=== PATIENT | female | born 1955 | race American Indian/Alaskan Native ===

== ENCOUNTER 2019-01-27 07:10 | Day surgery (SDC) | payer MEDICARE, BC ==
[~2019-01-27 07:10] MED LIST: Buffered Lidocaine 1% SYRIN* 1 ML/SYRINGE INTRADERM ONE; Famotidine IV* 10 MG/ML 2 ML (20 mg) IV ONE; Lactated Ringers 1000 ML Bag* 1,000 ML IV SCH; Metoclopramide TAB* 10 MG PO ONE
[2019-01-27] MEDS ORDERED: Famotidine IV* 10 MG/ML 2 ML (20 mg) ONE (08:16)
[2019-01-27] MEDS ORDERED: Metoclopramide IV* 5 MG/ML 2 ML VIAL ONE (08:16)
[2019-01-27] MEDS ORDERED: Buffered Lidocaine 1% SYRIN* 1 ML/SYRINGE INTRADERM ONE (08:16)
[2019-01-27] MEDS ORDERED: fentaNYL* 50 MCG/ML 2 ML VIAL (100 MCG VIAL) IV PRN (09:10)
[2019-01-27] MEDS ORDERED: DiMENhydriNATE IV* 50 MG/ML VIAL IV PUSH PRN (09:10)
[2019-01-27] MEDS ORDERED: HYDROcodone/ACETAMIN 5-325 MG* 1 TAB PO PRN (09:10)
[2019-01-27] MEDS ORDERED: Ketorolac INJ* 30 MG/ML 1 ML VIAL IV PRN (09:10)
[2019-01-27] MEDS ORDERED: Naloxone* 0.4 MG/ML 1 ML VIAL IV PRN (09:10)
[2019-01-27] MEDS ORDERED: oxyCODONE/Acetamin 5/325 MG* TAB PO PRN (09:10)
[2019-01-27] MEDS ORDERED: fentaNYL* 50 MCG/ML 2 ML VIAL (100 MCG VIAL) ONE (09:40)
[2019-01-27] MEDS ORDERED: Midazolam* 1 MG/ML 5 ML VIAL (5 MG) ONE (09:40)
[2019-01-27] MEDS ORDERED: Lidocaine 2% PF * 5 ML VIAL ONE (09:41)
[2019-01-27] MEDS ORDERED: Propofol* 10 MG/ML 20 ML BTL ONE (09:41)
[2019-01-27] MEDS ORDERED: Heparin VIAL(*) 5000 UNITS/ML VIAL (FIVE THOUSAND) ONE (10:40)
[2019-01-27] MEDS ORDERED: EPHEDrine (Pressors)* 50 MG/ML VIAL ONE (11:25)
[2019-01-27] MEDS ORDERED: Ondansetron INJ* 2 MG/ML VIAL ONE (11:33)
[2019-01-27] MEDS ORDERED: Phenylephrine 40 MCG/ML SYRINGE ONE (11:36)
--- NOTE | 2019-01-27 12:40 | OP ---
CC: [facility] OPERATIVE REPORT: DATE OF OPERATION: 01/27/19 DATE OF : 53 SURGEON: Margarita Kessler MD. ANESTHESIOLOGIST: Dr. Dumas. PRE-OP DIAGNOSIS: Postmenopausal bleeding. POST-OP DIAGNOSIS: Postmenopausal bleeding. OPERATIVE PROCEDURE: Dilation, hysteroscopy, MyoSure polypectomy, curettage. ESTIMATED BLOOD LOSS: Less than 20 cc. SPECIMENS: Endometrial polyp and endometrial curettings. FLUIDS: Per Anesthesia. Fluid deficit was 250 cc on the MyoSure device. FINDINGS: Midline cervix. Uterus sounds to 8. There is a large polyp extending from the fundus to the level of the internal os. Both tubal ostia were visualized. There were 2 other areas of slightly polypoid appearing tissue on the posterior uterine wall. The perineum appears chronically wet, there were no skin ulcerations on the perineum. COMPLICATIONS: None. COUNTS: Sponge count correct x2. CONDITION: The patient tolerated the procedure well and was brought to the recovery room awake and in stable condition. DESCRIPTION OF PROCEDURE: The patient was brought to the operating room. When anesthesia was found to be adequate, the patient was prepped and draped in the usual sterile fashion in the dorsal lithotomy position. Time-out was performed. Exam under anesthesia was performed. The side opening speculum was placed. The anterior lip of the cervix was grasped with a single-tooth tenaculum and the cervix was gently and easily dilated with graduated Hegar dilators. The hysteroscope was introduced. A large polyp was seen. The MyoSure polypectomy was performed. The polyp was removed in its entirety. Curettage was then performed. Endometrial polyp and endometrial curettings were sent to Pathology. The single-tooth tenaculum was removed from the cervix. Excellent hemostasis was noted. All instruments were removed from the vagina and the patient was brought to the recovery room awake and in stable condition. [id number]/[facility] #: [id number] [facility]ENTERKei
[2019-01-27 13:21] VITALS: BP 126/78
== END 2019-01-27 13:23 | disposition home or self-care (01) ==
LOC: OR 07:10
PROVIDERS: ATTEND Obstetrics & Gynecology
DX: N95.0 Postmenopausal bleeding (principal); N84.0 Polyp of corpus uteri; E11.9 Type 2 diabetes mellitus without complications; Z79.84 Long term (current) use of oral hypoglycemic drugs; Z87.891 Personal history of nicotine dependence; Z68.43 Body mass index [BMI] 50.0-59.9, adult; I10 Essential (primary) hypertension; Z99.81 Dependence on supplemental oxygen; G47.33 Obstructive sleep apnea (adult) (pediatric); M54.2 Cervicalgia; Z79.891 Long term (current) use of opiate analgesic
CPT/HCPCS: 88305; J1644; J2250; J2405; J2704; J2765; J3010

== ENCOUNTER 2023-10-13 02:54 | Inpatient (IN) ==
[2023-10-13] MEDS: Acetaminophen IV 1 GM/100ML 1,000 MG/100 ML BAG IV ONE (06:44)
[2023-10-13] MEDS: Morphine 4 MG/ML VIAL (1 ml) IV ONE ×2 (07:54→11:51)
[2023-10-13 09:56] LABS: ABS Basophils 0.1 10^3/uL (0.0-0.1); ABS Eosinophils 0.3 10^3/uL (0.0-0.5); ABS Lymphocytes 2.1 10^3/uL (1.0-4.8); ABS Monocytes 0.9 10^3/uL (0.0-0.9); ABS Neutrophils 8.6 10^3/uL (1.5-7.6); ABS Nucleated RBC 0.01 10^3/ul; Eosinophil % 2.1 %; Hematocrit 39.2 % (35-45); Hemoglobin 12.8 g/dL (11.5-14.3); Lymphocyte % 17.9 %; Mean Corpuscular Hemoglobin 32.2 pg (27-33); Mean Corpuscular Hgb Conc 32.7 g/dL (31-36); Mean Corpuscular Volume 98.4 fL (80-97); Mean Platelet Volume 7.5 fL (7.5-11.2); Platelet Count 222 10^3/uL (150-450); Red Blood Count 3.98 10^6/uL (3.63-4.92); Red Cell Distribution Width 14.1 % (12-17); White Blood Count 11.9 10^3/uL (3.8-11.8)
[2023-10-13 10:40] LABS: Albumin 3.5 g/dL (3.2-5.2); Albumin/Globulin Ratio 1.5 (1-3); Calcium 9.1 mg/dL (8.6-10.3); Creatinine, Serum 0.86 mg/dL (0.51-0.95); Globulin 2.3 g/dL (2-4); Potassium 4.2 mmol/L (3.5-5.0); Total Bilirubin 0.4 mg/dL (0.2-1.0); Total Protein 5.8 g/dL (6.4-8.9); eGFR CKD-EPI 73.1 (>60)
[2023-10-13] MEDS ORDERED: Polyethylene Glycol 3350 17 GM PACKET PO PRN (12:25)
[2023-10-13] MEDS ORDERED: Senna TAB 8.6 mg TAB PO PRN (12:25)
[2023-10-13] MEDS ORDERED: Magnesium Hydroxide LIQ 30 ML UDC PO PRN (12:25)
[2023-10-13] MEDS ORDERED: ceFAZolin *3* GM in NS PREMIX 3 GM/100 ML BAG IV ONE (14:14)
[2023-10-13] MEDS ORDERED: Propofol 10 MG/ML 20 ML BTL ONE ×2 (15:08→23:04)
[2023-10-13] MEDS ORDERED: fentaNYL 100 mcg/2 ml 50 MCG/ML VIAL ONE ×3 (15:08→22:51)
[2023-10-13] MEDS ORDERED: Lidocaine 2% PF 5 ML VIAL ONE ×2 (15:08→17:51)
[2023-10-13] MEDS ORDERED: Midazolam 2 mg/2 ml VIAL 1 mg/ml 2 ml VIAL (2 mg) ONE (15:08)
[2023-10-13] MEDS ORDERED: Naloxone 0.4 mg VIAL 0.4 mg/ml 1 ml VIAL IV PRN (15:10)
[2023-10-13] MEDS ORDERED: fentaNYL 100 mcg/2 ml 50 MCG/ML VIAL IV PRN (15:10)
[2023-10-13] MEDS ORDERED: Ondansetron 4 mg VIAL 2 MG/ML 2 ml VIAL IV PRN (15:10)
[2023-10-13] MEDS ORDERED: Rocuronium 50 mg VIAL 10 mg/ml 5 ml VIAL (50 mg) ONE ×2 (15:47→18:40)
[2023-10-13] MEDS ORDERED: Morphine 10 MG/ML VIAL (1 ml) ONE (16:46)
[2023-10-13] MEDS: Morphine 10 MG/ML VIAL (1 ml) IV PRN (16:48)
[2023-10-13] MEDS: Dextrose 50% Syringe 50 ml 25 GM/50 ML SYRINGE IV PUSH PRN (17:38)
[2023-10-13] MEDS ORDERED: Acetaminophen IV 1 GM/100ML 1,000 MG/100 ML BAG IV ONE (19:22)
[2023-10-13] MEDS ORDERED: KETAMINE HCL 10 MG/ML 20 ml VIAL (200 MG) ONE (19:32)
[2023-10-13] MEDS ORDERED: ceFAZolin VIAL VIAL ONE (22:31)
[2023-10-13] MEDS ORDERED: Bupivacaine 0.5% SDV PF 30ML VIAL ONE (22:50)
[2023-10-14] MEDS: Albumin Human 5% 12.5 GM/250 ML BTL IV ONE (01:08)
[2023-10-14] MEDS: oxyCODONE SR 10 mg TAB PO SCH (01:08)
[2023-10-14] MEDS: Dextrose 25% PED SYRINGE 10ml IV ONE (01:09)
[2023-10-14] MEDS: Lactated Ringers 1000 ml BAG 1,000 ML IV SCH (01:18)
[2023-10-14] MEDS: Insulin GLARGINE 100 un/ml 10 ml VIAL SUBCUT SCH (02:42)
[2023-10-14 04:22] LABS: ABS Lymphocytes 1.5 10^3/uL (1.0-4.8); ABS Monocytes 0.7 10^3/uL (0.0-0.9); ABS Neutrophils 15.6 10^3/uL (1.5-7.6); ABS Nucleated RBC 0.01 10^3/ul; Hematocrit 33.1 % (35-45); Hemoglobin 10.8 g/dL (11.5-14.3); Lymphocyte % 8.3 %; Mean Corpuscular Hemoglobin 31.8 pg (27-33); Mean Corpuscular Hgb Conc 32.6 g/dL (31-36); Mean Corpuscular Volume 97.7 fL (80-97); Mean Platelet Volume 7.9 fL (7.5-11.2); Platelet Count 271 10^3/uL (150-450); Red Blood Count 3.39 10^6/uL (3.63-4.92); Red Cell Distribution Width 14.3 % (12-17); White Blood Count 17.8 10^3/uL (3.8-11.8)
[2023-10-14 04:45] LABS: Calcium 8.7 mg/dL (8.6-10.3); Creatinine, Serum 0.86 mg/dL (0.51-0.95); Potassium 4.5 mmol/L (3.5-5.0); eGFR CKD-EPI 73.1 (>60)
[2023-10-14] MEDS: Morphine 2 MG/ML SYRINGE IV PRN (05:05)
[2023-10-14] MEDS: Enoxaparin 40 MG/0.4 ML SYR SUBCUT SCH (08:31)
[2023-10-14] MEDS: CMC:DAPAGLIFLOZIN 10 MG TAB (NF) PO SCH (09:17)
[2023-10-14] MEDS: ceFAZolin 1 GM ADVAN 1 GM in NS 0.9% 50 ML 50 ML IVPB SCH (09:17)
[2023-10-14] MEDS: NON FORMULARY MED (Cyanocobalamin (Vitamin B-12) [Vitamin B-12] 5,000 mcg Tablet, Sublingu SL SCH (09:36)
[2023-10-14] MEDS: Senna TAB 8.6 mg TAB PO SCH (21:22)
[2023-10-15 06:29] LABS: ABS Eosinophils 0.1 10^3/uL (0.0-0.5); ABS Lymphocytes 2.4 10^3/uL (1.0-4.8); ABS Neutrophils 6.8 10^3/uL (1.5-7.6); ABS Nucleated RBC 0.01 10^3/ul; Eosinophil % 0.8 %; Hematocrit 24.6 % (35-45); Hemoglobin 8.2 g/dL (11.5-14.3); Lymphocyte % 23.5 %; Mean Corpuscular Hgb Conc 33.5 g/dL (31-36); Mean Corpuscular Volume 98.6 fL (80-97); Mean Platelet Volume 7.9 fL (7.5-11.2); Platelet Count 206 10^3/uL (150-450); Red Blood Count 2.49 10^6/uL (3.63-4.92); Red Cell Distribution Width 14.4 % (12-17); White Blood Count 10.4 10^3/uL (3.8-11.8)
[2023-10-15 06:51] LABS: Albumin 3.1 g/dL (3.2-5.2); Albumin/Globulin Ratio 1.7 (1-3); Calcium 8.5 mg/dL (8.6-10.3); Creatinine, Serum 1.29 mg/dL (0.51-0.95); Globulin 1.8 g/dL (2-4); Magnesium 1.7 mg/dL (1.9-2.7); Potassium 4.6 mmol/L (3.5-5.0); Total Bilirubin 0.3 mg/dL (0.2-1.0); Total Protein 4.9 g/dL (6.4-8.9); eGFR CKD-EPI 44.9 (>60)
[2023-10-15] MEDS: Lactated Ringers 1000 ml BAG 1,000 ML IV SCH (08:56)
[2023-10-15] MEDS: Magnesium Sulfate 2 gm BAG 2 GM/50 ML BAG IVPB ONE (08:57)
[2023-10-15 13:20] LABS: Hematocrit 26.9 % (35-45); Hemoglobin 8.9 g/dL (11.5-14.3)
[2023-10-15 14:33] VITALS: BP 132/50
== END 2023-10-15 16:30 | DRG 308 ==
LOC: ED 02:54 → EDHOLD 11:33 → SUATTDRO 11:33 → SSU 12:22 → ICU 10-14 00:49 → SSU 10-14 09:14
PROVIDERS: ADMIT Internal Medicine; ATTEND Internal Medicine

== ENCOUNTER 2023-10-15 14:29 | Inpatient (IN) ==
[2023-10-15] MEDS ORDERED: Magnesium Hydroxide LIQ 30 ML UDC PO PRN (17:55)
[2023-10-15] MEDS ORDERED: Dextrose 50% Syringe 50 ml 25 GM/50 ML SYRINGE IV PUSH PRN (18:02)
[2023-10-15] MEDS: oxyCODONE SR 10 mg TAB PO SCH (21:41)
[2023-10-15] MEDS: Insulin GLARGINE 100 un/ml 10 ml VIAL SUBCUT SCH (21:57)
[2023-10-16 06:12] LABS: ABS Basophils 0.1 10^3/uL (0.0-0.1); ABS Eosinophils 0.5 10^3/uL (0.0-0.5); ABS Lymphocytes 2.8 10^3/uL (1.0-4.8); ABS Monocytes 0.9 10^3/uL (0.0-0.9); ABS Neutrophils 5.9 10^3/uL (1.5-7.6); Lymphocyte % 27.6 %; Mean Corpuscular Hgb Conc 33.3 g/dL (31-36); Mean Corpuscular Volume 99.1 fL (80-97); Mean Platelet Volume 8.1 fL (7.5-11.2); Platelet Count 238 10^3/uL (150-450); Red Blood Count 2.42 10^6/uL (3.63-4.92); Red Cell Distribution Width 14.6 % (12-17); White Blood Count 10.2 10^3/uL (3.8-11.8)
[2023-10-16] MEDS: Enoxaparin 40 MG/0.4 ML SYR SUBCUT SCH (09:04)
[2023-10-16] MEDS: CMCS:DAPAGLIFLOZIN 10 MG TAB (NF) PO SCH (09:08)
[2023-10-17 05:46] LABS: ABS Basophils 0.1 10^3/uL (0.0-0.1); ABS Eosinophils 0.4 10^3/uL (0.0-0.5); ABS Lymphocytes 2.8 10^3/uL (1.0-4.8); ABS Monocytes 0.8 10^3/uL (0.0-0.9); ABS Neutrophils 4.9 10^3/uL (1.5-7.6); ABS Nucleated RBC 0.04 10^3/ul; Eosinophil % 4.3 %; Hemoglobin 7.7 g/dL (11.5-14.3); Lymphocyte % 31.5 %; Mean Corpuscular Hemoglobin 33.1 pg (27-33); Mean Corpuscular Hgb Conc 33.4 g/dL (31-36); Mean Platelet Volume 7.7 fL (7.5-11.2); Nucleated Red Blood Cells % 0.4 %/100WBC (0.0-0.8); Platelet Count 260 10^3/uL (150-450); Red Blood Count 2.32 10^6/uL (3.63-4.92); Red Cell Distribution Width 14.4 % (12-17); White Blood Count 8.9 10^3/uL (3.8-11.8)
[2023-10-17 06:08] LABS: Calcium 9.1 mg/dL (8.6-10.3); Creatinine, Serum 0.9 mg/dL (0.51-0.95); Potassium 4.2 mmol/L (3.5-5.0); eGFR CKD-EPI 69.2 (>60)
[2023-10-17] MEDS: Insulin GLARGINE 100 un/ml 10 ml VIAL SUBCUT SCH (20:42)
[2023-10-18 06:50] LABS: ABS Basophils 0.1 10^3/uL (0.0-0.1); ABS Eosinophils 0.4 10^3/uL (0.0-0.5); ABS Lymphocytes 2.7 10^3/uL (1.0-4.8); ABS Monocytes 0.8 10^3/uL (0.0-0.9); ABS Neutrophils 4.5 10^3/uL (1.5-7.6); Eosinophil % 4.7 %; Hemoglobin 7.6 g/dL (11.5-14.3); Mean Corpuscular Hemoglobin 32.7 pg (27-33); Mean Corpuscular Volume 99.1 fL (80-97); Mean Platelet Volume 7.6 fL (7.5-11.2); Nucleated Red Blood Cells % 0.1 %/100WBC (0.0-0.8); Platelet Count 257 10^3/uL (150-450); Red Blood Count 2.32 10^6/uL (3.63-4.92); Red Cell Distribution Width 14.2 % (12-17); White Blood Count 8.3 10^3/uL (3.8-11.8)
[2023-10-18 07:56] LABS: Albumin 2.9 g/dL (3.2-5.2); Albumin/Globulin Ratio 1.3 (1-3); Creatinine, Serum 0.85 mg/dL (0.51-0.95); Globulin 2.2 g/dL (2-4); Potassium 4.3 mmol/L (3.5-5.0); Total Bilirubin 0.6 mg/dL (0.2-1.0); Total Protein 5.1 g/dL (6.4-8.9); eGFR CKD-EPI 74.1 (>60)
[2023-10-20 06:28] LABS: ABS Basophils 0.1 10^3/uL (0.0-0.1); ABS Eosinophils 0.3 10^3/uL (0.0-0.5); ABS Lymphocytes 2.4 10^3/uL (1.0-4.8); ABS Monocytes 0.6 10^3/uL (0.0-0.9); ABS Neutrophils 4.8 10^3/uL (1.5-7.6); ABS Nucleated RBC 0.03 10^3/ul; Eosinophil % 3.6 %; Hematocrit 24.4 % (35-45); Lymphocyte % 29.5 %; Mean Corpuscular Hgb Conc 32.9 g/dL (31-36); Mean Corpuscular Volume 100.3 fL (80-97); Mean Platelet Volume 7.8 fL (7.5-11.2); Nucleated Red Blood Cells % 0.3 %/100WBC (0.0-0.8); Platelet Count 321 10^3/uL (150-450); Red Blood Count 2.43 10^6/uL (3.63-4.92); Red Cell Distribution Width 14.8 % (12-17); White Blood Count 8.2 10^3/uL (3.8-11.8)
[2023-10-21] MEDS: Ondansetron ODT 4 mg TAB 4 MG TAB PO PRN (14:17)
[2023-10-21] MEDS: Ondansetron ODT 4 mg TAB 4 MG TAB ONE (14:25)
[2023-10-22] MEDS: Senna TAB 8.6 mg TAB PO PRN (20:17)
[2023-10-25 06:52] LABS: Hemoglobin 9.3 g/dL (11.5-14.3); Mean Corpuscular Hemoglobin 33.3 pg (27-33); Mean Corpuscular Volume 100.9 fL (80-97); Mean Platelet Volume 7.5 fL (7.5-11.2); Platelet Count 337 10^3/uL (150-450); Red Blood Count 2.78 10^6/uL (3.63-4.92); White Blood Count 6.7 10^3/uL (3.8-11.8)
[2023-10-25 07:05] LABS: Albumin 3.4 g/dL (3.2-5.2); Albumin/Globulin Ratio 1.5 (1-3); Calcium 9.9 mg/dL (8.6-10.3); Creatinine, Serum 0.82 mg/dL (0.51-0.95); Globulin 2.3 g/dL (2-4); Total Bilirubin 0.7 mg/dL (0.2-1.0); Total Protein 5.7 g/dL (6.4-8.9); eGFR CKD-EPI 77.4 (>60)
[2023-10-25 07:38] LABS: ABS Eosinophils 0.2 10^3/uL (0.0-0.5); ABS Lymphocytes 1.7 10^3/uL (1.0-4.8); ABS Monocytes 0.6 10^3/uL (0.0-0.9); ABS Neutrophils 4.2 10^3/uL (1.5-7.6); ABS Nucleated RBC 0.03 10^3/ul; Eosinophil % 3.1 %; Lymphocyte % 25.8 %; Nucleated Red Blood Cells % 0.4 %/100WBC (0.0-0.8)
[2023-11-01 06:57] LABS: ABS Eosinophils 0.2 10^3/uL (0.0-0.5); ABS Lymphocytes 1.8 10^3/uL (1.0-4.8); ABS Monocytes 0.5 10^3/uL (0.0-0.9); ABS Neutrophils 2.1 10^3/uL (1.5-7.6); Eosinophil % 4.6 %; Hematocrit 30.9 % (35-45); Lymphocyte % 38.3 %; Mean Corpuscular Hemoglobin 32.3 pg (27-33); Mean Corpuscular Hgb Conc 32.5 g/dL (31-36); Mean Corpuscular Volume 99.5 fL (80-97); Mean Platelet Volume 7.7 fL (7.5-11.2); Platelet Count 279 10^3/uL (150-450); Red Cell Distribution Width 15.2 % (12-17); White Blood Count 4.7 10^3/uL (3.8-11.8)
[2023-11-01 07:13] LABS: Albumin 3.5 g/dL (3.2-5.2); Albumin/Globulin Ratio 1.5 (1-3); Calcium 9.5 mg/dL (8.6-10.3); Creatinine, Serum 0.88 mg/dL (0.51-0.95); Globulin 2.3 g/dL (2-4); Potassium 4.4 mmol/L (3.5-5.0); Total Bilirubin 0.5 mg/dL (0.2-1.0); Total Protein 5.8 g/dL (6.4-8.9); eGFR CKD-EPI 71.1 (>60)
[2023-11-02 17:37] LABS: Urine Appearance Turbid; Urine Bilirubin Negative (Negative); Urine Blood Negative (Negative); Urine Color Yellow; Urine Glucose 4+ (>=1000 mg/dL) (Negative); Urine Ketones Negative (Negative); Urine Nitrite Negative (Negative); Urine Protein Negative (Negative); Urine Urobilinogen Negative (Negative); Urine pH 5.5 (5.0-8.0)
[2023-11-03 06:44] VITALS: BP 120/76
== END 2023-11-03 14:50 | disposition home or self-care (01) | DRG 560 ==
LOC: PMRU 16:53
PROVIDERS: ADMIT Physical Medicine & Rehabilitation; ATTEND Physical Medicine & Rehabilitation